=== PATIENT | female | born 1975 | race Two or more races ===

== ENCOUNTER → 2018-04-12 | Day surgery (SDC) | payer OTHER ==
--- NOTE | 2018-04-12 19:59 | OP ---
DATE OF OPERATION: 04/12/2018 PREOPERATIVE DIAGNOSIS: Right breast mass, 6 o'clock, 3 cm from the nipple. POSTOPERATIVE DIAGNOSIS: Right breast mass, 6 o'clock, 3 cm from the nipple. PROCEDURE: Left ultrasound-guided core biopsy with clip placement. ANESTHESIA: General. ATTENDING SURGEON: Gema Ferrer MD ESTIMATED BLOOD LOSS: Minimal. COMPLICATIONS: None. DESCRIPTION OF PROCEDURE: Patient was made aware of the risks and benefits of the procedure and consented. She was placed in a supine position. Under sterile conditions with 1% lidocaine for local anesthesia, a small asif was made in the skin. Using 10-gauge suction biopsy device via lateral approach under ultrasound guidance, multiple cores were obtained and submitted to Pathology. Likewise, under ultrasound guidance, a bowtie clip was placed into the biopsy region. Well tolerated by the patient. Steri-Strips and sterile bandage was then applied. GEMA FERRER M.D. [id number]
--- NOTE | 2018-04-13 16:28 | PATH ---
Surgical Pathology Report Patient Name: YURI PLASENCIA [facility]. Rec. #: [id number] /Age/Gender: 1975 (Age: 42) / F Account: [id number] Location: [facility] Taken: 04/12/2018 Received: 04/12/2018 Reported: 04/13/2018 Physicians: Justin Quijano M.D. Specimen(s) Received LEFT BREAST CORE BIOPSY 6:00 3CM Clinical History Nonpalpable lesion Ultrasound findings: Cystic lesion Final Diagnosis LEFT BREAST CORE BIOPSY 6:00, 3 CM FN: BREAST TISSUE WITH STROMAL FIBROSIS AND DUCT ECTASIA. Electronically Signed Kacey Young M.D. Gross Description Received in formalin labeled "left breast biopsy 6:00, 3 cm fn," is a 1.7 x 1.4 x 0.3 cm aggregate of multiple oviedo-yellow, irregular to cylindrical portions of fibroadipose tissue. The formalin is filtered and the specimen is entirely submitted in one cassette. Total formalin fixation time: Between 6-10 hours /04/12/2018 [facility]/04/12/2018
== END | disposition home or self-care (01) ==
LOC: FRADUS-SUR 10:55
PROVIDERS: ATTEND Surgery
PROC: 0HBU3ZX Excision of Left Breast, Percutaneous Approach, Diagnostic (ICD-10-PCS; principal; 2018-04-12)
DX: N60.42 Mammary duct ectasia of left breast (principal); N60.32 Fibrosclerosis of left breast; N63.20 Unspecified lump in the left breast, unspecified quadrant
CPT/HCPCS: 19083; 87899; 88305-TC; A4648